=== PATIENT | male | born 1950 | race Caucasian/White ===

== ENCOUNTER → 2020-11-15 | Outpatient (CLI) | payer BC | END | disposition home or self-care (01) | LOC: LABWHC1 16:44 | PROVIDERS: ATTEND Family Medicine | DX: Z20.828 Contact with and (suspected) exposure to other viral communicable diseases (principal) | CPT/HCPCS: U0003; C9803 ==

== ENCOUNTER → 2022-12-01 | Outpatient (CLI) | payer BC, OTHER ==
--- NOTE | 2022-12-01 11:10 | CA ---
Exercise Nuclear Stress Test Report Name: Dg Gordon Exam Date: 12/01/2022 10:31 Exam Location: [place] Stress Ht (in): 71 Wt (lb): 199 BSA: 2.10 Ordering Phys: Bill Ramesh MD Referring Phys: BILL RAMESH,, Technologist: Noe García Age: 71 Gender: M : 1950 Procedure CPT: Indications: I25.10 ICD-10 Codes: Patient History: Medications: ATORVASTATIN, FLOMAX, FOLIC ACID, LISINOPRIL,ZEROLTO Meds past 24 hrs: Pretest Chest Pain: STRESS TEST Reji Protocol Exercise Duration (min:sec): 06:[address] Depressions (mm): Angina Score: Ring Score: Resting HR (bpm): 79 Peak HR (bpm): 130 Resting BP (mmHg): 109 / 81 Peak BP (mmHg): / 73 MPHR: 147 Target HR: 125 % MPHR: 88 METS: 7.1 Total Dose: Peak Dose: Atropine: Double Product: BP Response: Stress Termination: Reached target heart rate Stress Symptoms: NO SYMPTOMS Stress Summary: ECG ANALYSIS Resting ECG: Stress ECG: CONCLUSIONS Patient underwent Cardiolite exercise stress test with a Reji protocol treadmill stress test. Patient exercised into Stage 2 for a total of 6 minutes reaching a total of 7.1 METS. Patient's maximum heart rate was 130 which represented 88 % age- predicted maximum heart rate. Stress EKG findings: At baseline patient's EKG showed normal sinus rhythm, normal axis, no significant ST or T wave abnormalities. At peak exercise, EKG showed rare PVCs, no significant ST or T-wave changes. Conclusions: 1. Normal EKG response to exercise without evidence of inducible ischemia. 2. Fair exercise capacity. 3. Nuclear portion to be reported separately. Dr. Dillon Brown DO (Electronically Signed) Final Date: 01 December 2022 11:09
--- NOTE | 2022-12-01 11:33 | NM ---
EXAMINATION TYPE: NM stress cardiolite complete DATE OF EXAM: 12/01/2022 COMPARISON: NONE HISTORY: I25.10 , abnormal calcium score TECHNIQUE: After the intravenous administration of 9.4 mCi Tc 99m Sestamibi - Rest images obtained 4 5 minutes post injection. The patient exercised using a MERARY protocol and 1 minute prior to peak e xercise was injected with 25.4 mCi Tc 99m Sestamibi - Stress images obtained 10 minutes post injectio n. FINDINGS: 88% of target heart rate was achieved. Review of stress and rest SPECT images demonstrates no distinc t perfusion abnormality. Gated analysis shows normal wall motion with an estimated left ventricular ejection fraction of 71 %. TID is within normal limits at 0.80. IMPRESSION: No scintigraphic evidence for reversible ischemia
== END | disposition home or self-care (01) ==
LOC: RADNMMAIN 08:29
PROVIDERS: ATTEND Family Medicine
DX: I25.10 Atherosclerotic heart disease of native coronary artery without angina pectoris (principal)
CPT/HCPCS: 93017; 78452; A9500

== ENCOUNTER → 2023-11-01 | Outpatient (CLI) | payer BC, OTHER ==
--- NOTE | 2023-11-03 21:01 | MR ---
EXAMINATION TYPE: MR foot RT wo con DATE OF EXAM: 11/01/2023 COMPARISON: None HISTORY: Right foot pain, top of foot and great toe. TECHNIQUE: Multiplanar, multisequence images of the right foot were acquired without contrast. FINDINGS: BONES/CARTILAGE/JOINT: Nonlinear bone marrow edema is present in the first metatarsal and proximal phalanx, sides of edema l ocated adjacent to the MTP joint and the IP joints. Joint space narrowing and slight increased fluid in the first MTP joint. Tiny type I accessory os navicular. LIGAMENTS: Spring ligament is normal. Lisfranc ligament normal. Normal plantar plates. TENDONS: Flexor tendons are normal. Extensor tendons are normal. SOFT TISSUES: No bursal distention. No intermetatarsal bursa or soft tissue mass. Sinus tarsi is normal. Plantar fascia is normal. Neurovascular structures are normal. 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
== END | disposition home or self-care (01) ==
LOC: RADMRIMAIN 08:34
PROVIDERS: ATTEND Family Medicine
DX: M19.071 Primary osteoarthritis, right ankle and foot (principal)